=== PATIENT | female | born 1965 | race Caucasian/White ===

== ENCOUNTER 2020-05-16 10:39 | Outpatient (CLI) | payer MEDICAID ==
[~2020-05-16] VITALS: Ht 160 cm; Wt 45.5 kg
[2020-05-16 11:42] LABS: BASOPHILS 0.3 % (0-2); EOSINOPHILS 2.4 % (0-7); HEMATOCRIT 33.5 % (36.0-48.0); HEMOGLOBIN 11.4 g/dL (12-16); IMMATURE GRANULOCYTES 0.2 % (0-5); LYMPHOCYTES 21.3 % (15-50); MCH 32.6 pg (26.0-34.0); MCV 95.7 fL (80.0-100.0); MEAN PLATELET VOLUME 8.9 fL (7.4-10.4); MONOCYTES 8.8 % (2-11); PLATELET COUNT 261 10x3/uL (130-400); RDW 13.6 % (11.5-14.5); WBC 10.4 10x3/uL (4.8-10.8)
[2020-05-16 11:51] LABS: ANION GAP 12.6 mmol/L (8-16); APTT 30.8 SECONDS (22.8-39.4); CALCIUM 8.8 mg/dL (8.5-10.1); CARBON DIOXIDE 26.8 mmol/L (21.0-32.0); INR 0.96 (0.85-1.17); POTASSIUM - SERUM 4.4 mmol/L (3.5-5.1); PROTIME 12.7 SECONDS (11.6-15.0)
[2020-05-16] MEDS ORDERED: GABAPENTIN300 MG PO (11:51)
[2020-05-16] MEDS ORDERED: LISINOPRIL10 MG PO (11:52)
[2020-05-16] MEDS ORDERED: MOBIC7.5 MG PO (11:52)
[2020-05-16] MEDS ORDERED: LEXAPRO10 MG (11:54)
[2020-05-16] MEDS ORDERED: FERROUS SULFAT325 MG PO (11:55)
[2020-05-16] MEDS ORDERED: MULTI-DAY VITAM1 TAB PO (11:55)
[2020-05-16 12:05] VITALS: BP 134/78; Ht 160 cm; Wt 45.5 kg
--- NOTE | 2020-05-16 18:30 | NUR ---
1454 MEDICATED FOR SORENESS TO SITE. NO SWELLING AND DRESSING CDI. VS STABLE. 1545 PAIN EASING AND INSTRUCTIONS GIVEN TO PT 1800 IV REMOVED AND PRESSURE HELD. PT ABLE TO DRESS SELF
== END 2020-05-16 18:15 | disposition home or self-care (01) ==
LOC: D.SP 10:39 → D.CT 14:00 → D.SP 14:00
PROVIDERS: Radiology Diagnostic Radiology; ATTEND Internal Medicine Gastroenterology
DX: R74.0 Nonspecific elevation of levels of transaminase and lactic acid dehydrogenase [LDH] (principal); J45.909 Unspecified asthma, uncomplicated; Z72.0 Tobacco use; D64.9 Anemia, unspecified